=== PATIENT | female | born 1970 | race Caucasian/White ===

== ENCOUNTER 2025-04-03 07:06 | Day surgery (SDC) | payer OTHER ==
[~2025-04-03] VITALS: Ht 162.6 cm; Wt 83.3 kg
[~2025-04-03 07:06] MED LIST: SODIUM CHLORIDE 0.9% 1,000 ML ONE
[2025-04-03] MEDS: SODIUM CHLORIDE 0.9% 1,000 ML IV ONE (08:19)
[2025-04-03] MEDS ORDERED: SERT-162 PO (08:43)
[2025-04-03] MEDS ORDERED: BUSP5TAB20 PO (08:43)
[2025-04-03] MEDS ORDERED: BUDE10.27 IH (08:43)
[2025-04-03] MEDS ORDERED: ALBU18HF12 IH (08:43)
[2025-04-03] MEDS ORDERED: FentaNYL CITRATE PF 100 MCG/2 ML VIAL ONE (08:44)
[2025-04-03] MEDS ORDERED: MIDAZOLAM HCL 2 MG/2 ML VIAL ONE (08:44)
[2025-04-03 10:15] VITALS: PULSE 80; RESP 16; O2SAT 100
[2025-04-03] MEDS ORDERED: BENZOCAINE 20% 50 MCG/SPRAY 57 GM ONE (16:26)
[2025-04-03] MEDS ORDERED: LIDOCAINE 2% 11 ML JELLY ONE (16:26)
[2025-04-03] MEDS ORDERED: LIDOCAINE 4% 50 ML SOLUTION ONE (16:26)
[2025-04-03] MEDS ORDERED: ALBUTEROL SULFATE 2.5 MG/0.5 ML NEB SOLUTION NEB ONE (16:26)
== END 2025-04-03 14:55 | disposition home or self-care (01) ==
LOC: SDS 07:06
PROVIDERS: ATTEND Internal Medicine Critical Care Medicine
DX: R05.3 Chronic cough (principal); R06.2 Wheezing; R49.0 Dysphonia; R04.2 Hemoptysis; R06.1 Stridor; J43.9 Emphysema, unspecified; Z90.710 Acquired absence of both cervix and uterus
CPT/HCPCS: 31623; 87206; 87101; 87220; 87070; 31624; 94640; 71045; 87015; J3010; J2250; J2919; J7030; 88108; J7613; Z7610